=== PATIENT | female | born 1950 | race Caucasian/White ===

== ENCOUNTER 2016-06-15 09:55 | Emergency (ER) | payer MEDICARE ==
[~2016-06-15] VITALS: Ht 157.5 cm; Wt 90.2 kg
[2016-06-15 10:00] VITALS: BP 148/78; PULSE 77; RESP 18; TEMP 98; O2SAT 96
[2016-06-15] MEDS ORDERED: TRIA1MIS (10:29)
[2016-06-15] MEDS ORDERED: ALEN1TAB48 PO (10:29)
[2016-06-15] MEDS ORDERED: METR1GEL TOPICAL (10:29)
[2016-06-15] MEDS ORDERED: ATOR20TA15 PO (10:29)
[2016-06-15] MEDS ORDERED: SULF500T3 PO (10:29)
--- NOTE | 2016-06-15 10:48 | PD ---
HPI Chief Complaint: Musculoskeletal Complaint Time Seen by Provider: 10:16 Travel History International Travel<30 days: No Contact w/Intl Traveler<30days: No Traveled to known affect area: No History of Present Illness HPI 66-year-old female here for evaluation of left foot and ankle pain and right elbow pain after mechanical slip and fall that occurred at around 6:00 this morning. Patient is mainly having pain in her left forefoot. She states the pain is moderate, worse with weightbearing and ambulation, better with rest. She is having mild right elbow pain that is worse with movement and palpation. She denies head injury or LOC. No head neck or back pain. No pain in any other joint or extremity. PFSH Past Medical History High Cholesterol: Yes Hypertension: Yes Respiratory: Yes (ATHMA) Integumentary: Yes (rosacea) Influenza Vaccination: Yes ?: Not Past Surgical History Genitourinary Surgery: Yes (bladder) Hysterectomy: Yes Other Surgery: Yes (bilateral bunionectomy) Social History Alcohol Use: Yes (occ) Tobacco Use: No Substance Use: No Allergies-Medications (Allergen,Severity, Reaction): Coded Allergies: Vicodin (Verified Allergy, Intermediate, GI UPSET, 06/15/16) Reported Meds & Prescriptions Reported Meds & Active Scripts Active Reported Dermazone 0.1 % (Triamcinolone Acetonide-[place]) 1 Mis Mis Metrogel Topical (Metronidazole Topical) 1 % Gel 1 Applic TOPICAL DAILY Atorvastatin (Atorvastatin Calcium) 20 Mg Tab 20 Mg PO HS Alendronate (Alendronate Sodium) 70 Mg Tab 70 Mg PO Q7D Sulfasalazine 500 Mg Tab 500 Mg PO Q8H Review of Systems Except as stated in HPI: all other systems reviewed are Neg Physical Exam Narrative GENERAL: Well-developed, well-nourished, comfortable, no acute distress. SKIN: Focused skin assessment warm/dry. Mild right posterior elbow ecchymosis. No other lacerations, abrasions, or ecchymosis. HEAD: Atraumatic. Normocephalic. EYES: Pupils equal and round. No scleral icterus. No injection or drainage. ENT: Mucous membranes pink and moist. NECK: Trachea midline. No JVD. No midline cervical spine step-off or tenderness. CARDIOVASCULAR: Regular rate and rhythm. Bilateral dorsalis pedis pulses are brisk and equal. MUSCULOSKELETAL: Mild left forefoot swelling with moderate diffuse tenderness without obvious deformity. Left ankle appears somewhat deformed, however is not tender, and the patient states that is her normal appearance of her ankle. Right elbow with mild posterior ecchymosis with normal range of motion with mild tenderness posteriorly. All compartments in all 4 extremities are supple. NEUROLOGICAL: Awake and alert. No obvious cranial nerve deficits. Motor grossly within normal limits. Normal speech. PSYCHIATRIC: Appropriate mood and affect; insight and judgment normal. Data Data Last Documented VS Vital Signs Date Time Temp Pulse Resp B/P Pulse Ox O2 Delivery O2 Flow Rate FiO2 06/15/16 10:00 98.0 77 18 148/78 96 Orders Ankle, Complete ([id number]) (06/15/16 ) Foot, Complete ([id number]) (06/15/16 ) Elbow, Complete (4 Vws) (06/15/16 ) MDM Medical Decision Making Medical Screen Exam Complete: Yes Emergency Medical Condition: Yes Differential Diagnosis Left foot sprain versus fracture, Lisfranc fracture, right elbow fracture versus contusion Narrative Course Vital signs reviewed. Left foot x-ray: Second proximal phalanx fracture. Left ankle x-ray: Soft tissue swelling. No acute fractures. Right elbow x-ray: No acute disease. Patient was made aware of all findings. Her left foot will be placed in a postop shoe. I will give her the name of the coke drawer on-call with whom to follow-up with this week. She was informed on when to return to the emergency department. She verbalizes understanding and agreement with plan. Diagnosis Primary Impression: Closed fracture of phalanx of left second toe Referrals: Melanie Lofton DPM 1 week [employer] Additional Instructions: Follow-up with coke drawer Dr. Lofton or a coke drawer of your choice this week. Return to the emergency department for worsening symptoms or any other concerns. Scripts Tramadol 50 Mg Tab50 Mg PO Q6H PRN (PAIN) #20 TAB Ref 0 Prov:Lewis Kingston MD 06/15/16 Disposition: 01 DISCHARGE HOME Condition: Stable Lewis Kingston MD Jun 15, 2016 10:48
--- NOTE | 2016-06-15 11:23 | RADHPO ---
EXAM DATE/TIME: 06/15/2016 10:59 [facility] COMPARISON: No previous studies available for comparison. INDICATIONS : Fell today MEDICAL HISTORY : Hypertension. SURGICAL HISTORY : bunion surgery ENCOUNTER: Initial ACUITY: 1 day PAIN SCORE: 5/10 LOCATION: Right elbow FINDINGS: Multiple view examination of the right elbow demonstrates no soft tissue swelling, joint effusion, or fracture. The osseous structures are in normal alignment. Bony mineralization is normal. CONCLUSION: No acute disease. Mode Vaz MD on June 15, 2016 at 11:21 Board Certified Radiologist. This report was verified electronically.
--- NOTE | 2016-06-15 11:24 | RADHPO ---
EXAM DATE/TIME: 06/15/2016 10:53 [facility] COMPARISON: No previous studies available for comparison. INDICATIONS : Fell today MEDICAL HISTORY : Hypertension. SURGICAL HISTORY : bunion surgery ENCOUNTER: Initial ACUITY: 1 day PAIN SCORE: 8/10 LOCATION: Left ankle FINDINGS: There is soft tissue swelling at the lateral aspect of the ankle. No acute fracture or dislocation. P rominent plantar calcaneal spur. CONCLUSION: Soft tissue swelling. Mode Vaz MD on June 15, 2016 at 11:22 Board Certified Radiologist. This report was verified electronically.
--- NOTE | 2016-06-15 11:24 | RADHPO ---
EXAM DATE/TIME: 06/15/2016 10:57 [facility] COMPARISON: No previous studies available for comparison. INDICATIONS : fell today MEDICAL HISTORY : Hypertension. SURGICAL HISTORY : bunion surgery ENCOUNTER: Initial ACUITY: 1 day PAIN SCORE: 8/10 LOCATION: Left foot FINDINGS: Three view examination of the left foot demonstrates no soft tissue swelling, dislocation, or fractur e. The tarsal bones appear intact. The interphalangeal and metatarsophalangeal joints are intact. The calcaneus is intact. Bony mineralization is normal. Previous bunion surgery first metatarsal. P lantar calcaneal spur. CONCLUSION: Second proximal phalanx fracture. Mode Vaz MD on June 15, 2016 at 11:21 Board Certified Radiologist. This report was verified electronically.
[2016-06-15] MEDS ORDERED: TRAM50TA PO (11:39)
[2016-06-15] MEDS ORDERED: IBUPROFEN 600 MG TAB PO ONE (11:45)
== END 2016-06-15 12:00 | disposition home or self-care (01) ==
LOC: PHED 09:55
DX: S92.512A Displaced fracture of proximal phalanx of left lesser toe(s), initial encounter for closed fracture (principal); S50.01XA Contusion of right elbow, initial encounter; W01.0XXA Fall on same level from slipping, tripping and stumbling without subsequent striking against object, initial encounter
CPT/HCPCS: 73080; 73610; 73630; 99283; E0113; L3260

== ENCOUNTER 2017-04-10 16:04 | Emergency (ER) | payer MEDICARE ==
[~2017-04-10] VITALS: Ht 157.5 cm; Wt 86.0 kg
[~2017-04-10 16:04] MED LIST: ALEN1TAB48 PO; ATOR20TA15 PO; METR1GEL TOPICAL; SULF500T3 PO; TRAM50TA PO; TRIA1MIS
[2017-04-10 16:08] VITALS: BP 238/92; PULSE 80; RESP 16; TEMP 98.5; O2SAT 94
[2017-04-10] MEDS ORDERED: TRIA.025%T TOPICAL (16:19)
[2017-04-10] MEDS ORDERED: ATOR20TA15 PO (16:19)
[2017-04-10] MEDS ORDERED: LOSA50TA PO (16:19)
--- NOTE | 2017-04-10 16:45 | PD ---
HPI Chief Complaint: Eye Problems/Injury Time Seen by Provider: 16:37 Travel History International Travel<30 days: No Contact w/Intl Traveler<30days: No Traveled to known affect area: No History of Present Illness HPI This is a 67-year-old female here for evaluation of left eye pain. Prior to arrival she accidentally instilled one drop swimmer's ear into the left eye thinking it was lubricating eyedrops. She felt immediate burning. She has mild blurred vision due to the tearing. She irrigated the eye immediately in the sink for 5 minutes. She called EMS who transported her here and they irrigated the eye in route. PFSH Past Medical History High Cholesterol: Yes Hypertension: Yes Respiratory: Yes (ATHMA) Integumentary: Yes (rosacea) Past Surgical History Genitourinary Surgery: Yes (bladder) Hysterectomy: Yes Other Surgery: Yes (bilateral bunionectomy) Social History Alcohol Use: Yes (occ) Tobacco Use: No Substance Use: No Allergies-Medications (Allergen,Severity, Reaction): Coded Allergies: acetaminophen (Unverified Allergy, Intermediate, GI UPSET, 04/10/17) hydrocodone (Unverified Allergy, Intermediate, GI UPSET, 04/10/17) Reported Meds & Prescriptions Reported Meds & Active Scripts Active Erythromycin Opth Oint 5 Mg/Gm Oint 1 Applic LEFT EYE QID Reported Losartan (Losartan Potassium) 50 Mg Tab 50 Mg PO DAILY Triamcinolone Topical (Triamcinolone Acetonide) 0.025% Cream 1 Applic TOPICAL BID Atorvastatin (Atorvastatin Calcium) 20 Mg Tab 20 Mg PO HS Metrogel Topical (Metronidazole Topical) 1 % Gel 1 Applic TOPICAL DAILY Sulfasalazine 500 Mg Tab 500 Mg PO Q8H Review of Systems Except as stated in HPI: all other systems reviewed are Neg General / Constitutional: No: Fever Eyes: Positive: Redness, Tearing, No: Visual changes HENT: No: Headaches Cardiovascular: No: Chest Pain or Discomfort Respiratory: No: Shortness of Breath Gastrointestinal: No: Abdominal Pain Genitourinary: No: Dysuria Musculoskeletal: No: Pain Skin: No Rash Physical Exam Narrative GENERAL: Alert well-appearing 67-year-old female SKIN: Warm and dry. HEAD: Normocephalic. EYES: Left eye mildly injected. PH 7 Pupils are equal, round, reactive. EOMs intact. Corneas clear. Peripheral vision intact. No fluorescein dye uptake. Visual acuity L: 20/20, R: 20/100 NECK: Supple CARDIOVASCULAR: Regular rate and rhythm without murmurs, gallops, or rubs. RESPIRATORY: Breath sounds equal bilaterally. No accessory muscle use. Data Data Last Documented VS Vital Signs Date Time Temp Pulse Resp B/P (MAP) Pulse Ox O2 Delivery O2 Flow Rate FiO2 04/10/17 16:08 98.5 80 16 238/92 (140) 94 Orders Orders Erythromycin 0.5% Opth Oint (Ilotycin 0. (04/10/17 17:15) [facility] Medical Decision Making Medical Screen Exam Complete: Yes Emergency Medical Condition: Yes Differential Diagnosis Chemical irritation to the left eye, chemical burn, conjunctivitis region, corneal ulcer Narrative Course 67-year-old female here for evaluation of left eye irritation. Patient instilled one drop of swimmer's ear which consists of isopropyl alcohol into the left eye. She irrigated the eye immediately. Physical exam is reassuring. PH of the eye is 7. No fluorescein dye uptake. Visual acuity in the left eye is 20/20. Right eye 20/100. She reports this is her normal. She was just checked by her grocery team member several days ago. Patient was referred to follow up with ophthalmology for recheck. Diagnosis Primary Impression: Chemical injury of eye Qualified Codes: T26.92XA - Corrosion of left eye and adnexa, part unspecified , initial encounter Referrals: [employer] Additional Instructions: Antibiotic ointment to the left eye has directed. Make an appointment to follow up with your grocery team member for recheck. Return if he developed new or worsening symptoms. Scripts Erythromycin Opth Oint (Erythromycin Opth Oint) 5 Mg/Gm Oint 1 APPLIC LEFT EYE QID for Infection, #1 TUBE 0 Refills Prov: Tatiana Jacobson 04/10/17 Disposition: 01 DISCHARGE HOME Condition: Stable Tatiana Jacobson Apr 10, 2017 16:45
[2017-04-10] MEDS ORDERED: ERYTOIN10 LEFT EYE (17:01)
[2017-04-10] MEDS ORDERED: ERYTHROMYCIN 0.5% OPTH OINT 3.5 GM TUBO LEFT EYE ONE (17:15)
== END 2017-04-10 17:41 | disposition home or self-care (01) ==
LOC: PHEFT 16:04
DX: T26.92XA Corrosion of left eye and adnexa, part unspecified, initial encounter (principal); E78.00 Pure hypercholesterolemia, unspecified; I10 Essential (primary) hypertension; Z88.6 Allergy status to analgesic agent; Z88.5 Allergy status to narcotic agent; Z79.899 Other long term (current) drug therapy
CPT/HCPCS: 99283